=== PATIENT | male | born 1945 | race Caucasian/White ===

== ENCOUNTER 2020-08-29 08:38 | Day surgery (SDC) | payer OTHER ==
[~2020-08-29] VITALS: Ht 177.8 cm; Wt 58.5 kg
[~2020-08-29 08:38] MED LIST: DESO.05TL TOP; MELA3 PO; OMEP20ER PO; TRAZ100 PO; Vitamin D2000 UNIT PO
--- NOTE | 2020-08-29 09:10 | NUR ---
PT ADMITTED TO [facility]. AGREES WITH PLANNED SURGERY. LUNG SOUNDS CLEAR.
--- NOTE | 2020-08-29 12:04 | NUR ---
dr santos in [facility] states "xray looks good".
--- NOTE | 2020-08-30 09:43 | NUR ---
08/30/20 0943 Yulia Mora VERIFICATIONS, AUDITS.
== END 2020-08-29 12:50 | disposition home or self-care (01) ==
LOC: ORSCMMR 08:38
PROVIDERS: Surgery
PROC: 05HM33Z Insertion of Infusion Device into Right Internal Jugular Vein, Percutaneous Approach (ICD-10-PCS; principal; 2020-08-29 10:15)
PROC: B5131ZA Fluoroscopy of Right Jugular Veins using Low Osmolar Contrast, Guidance (ICD-10-PCS; principal; 2020-08-29 10:15)
DX: C15.9 Malignant neoplasm of esophagus, unspecified (principal); I10 Essential (primary) hypertension; J44.9 Chronic obstructive pulmonary disease, unspecified; Z87.891 Personal history of nicotine dependence; Z79.899 Other long term (current) drug therapy
CPT/HCPCS: 77001; C1788; J0690; J1642; J2250; J3010; J7120

== ENCOUNTER 2021-06-20 08:43 | Day surgery (SDC) | payer OTHER ==
[~2021-06-20] VITALS: Ht 177.8 cm; Wt 54.8 kg
[2021-07-18] MEDS ORDERED: FISH OIL-VIT D1 EACH PO (09:17)
[2021-07-18] MEDS ORDERED: CAPE500 PO (09:17)
== END 2021-06-20 11:00 | disposition home or self-care (01) ==
LOC: ORSCSDS 08:43
PROVIDERS: Internal Medicine Gastroenterology
PROC: 0DBL8ZX Excision of Transverse Colon, Via Natural or Artificial Opening Endoscopic, Diagnostic (ICD-10-PCS; principal; 2021-06-20 10:00)
PROC: 0DBK8ZX Excision of Ascending Colon, Via Natural or Artificial Opening Endoscopic, Diagnostic (ICD-10-PCS; principal; 2021-06-20 10:00)
DX: R10.32 Left lower quadrant pain (principal); C18.2 Malignant neoplasm of ascending colon; D12.3 Benign neoplasm of transverse colon; K64.8 Other hemorrhoids; Z87.891 Personal history of nicotine dependence; Z79.899 Other long term (current) drug therapy
CPT/HCPCS: 88305; J2704; J7120

== ENCOUNTER 2021-07-21 05:49 | Inpatient (IN) | payer OTHER ==
[~2021-07-21] VITALS: Ht 177.8 cm; Wt 54.4 kg
[~2021-07-21 05:49] MED LIST changes: +CAPE500 PO; +FISH OIL-VIT D1 EACH PO
--- NOTE | 2021-07-21 09:46 | NUR ---
07/21/[address] PLACED EPIDURAL PRE OP
--- NOTE | 2021-07-21 16:59 | NUR ---
SUMMARY VSS, REPORTS R ARM PAIN IS CURRENTL AT 3/10, STATES PAIN IS "TOLERABLE" DENIES ANY INCISIONAL PAIN, USING EPIDURAL FOR PAIN CONTROL, TOLERATING CLEAR LIQUIDS WELL, DENIES ANY NAUSEA, EPIDURAL CATH INTACT, OOB TO CHAIR FOR DINNER.
[2021-07-22 04:39] LABS: BASOPHILS PERCENT AUTO 0 % (0-2); EOSINOPHILS PERCENT AUTO 0 % (0-6); Hematocrit 26.6 % (37.0-53.0); Hemoglobin 9.2 g/dL (13.5-17.5); IMMATURE GRAN ABSOLUTE AUTO 0.04 K/mm3 (0.00-0.10); IMMATURE GRAN PERCENT AUTO 0 % (0-1); LYMPHOCYTES ABSOLUTE AUTO 0.38 K/mm3 (0.84-5.20); LYMPHOCYTES PERCENT AUTO 4 % (21-46); MONOCYTES ABSOLUTE AUTO 0.67 K/mm3 (0.16-1.47); MONOCYTES PERCENT AUTO 7 % (4-13); Mean Corpuscular HGB 32.2 pg (26.0-34.0); Mean Corpuscular HGB Conc 34.6 g/dL (31.5-36.5); Mean Corpuscular Volume 93 fL (80-100); Mean Platelet Volume 10.9 fL (9.1-12.4); NEUTROPHILS ABSOLUTE AUTO 8.88 K/mm3 (1.96-9.15); NEUTROPHILS PERCENT AUTO 89 % (41-73); Platelet Count 138 K/mm3 (150-400); RDW Coefficient Variation 12.5 % (11.7-14.2); Red Blood Cell Count 2.86 M/mm3 (4.30-5.90); White Blood Cell Count 9.97 K/mm3 (4.00-11.30)
[2021-07-22 04:58] LABS: Anion Gap 5 mmol/L (6-16); Blood Urea Nitrogen 9 mg/dL (8-24); Bun/Creatinine Ratio 11.7 (12.0-20.0); CO2, Blood 26 mmol/L (21-32); Calcium, Blood 7.9 mg/dL (8.5-10.1); Chloride, Blood 106 mmol/L (98-108); Creatinine, Blood 0.77 mg/dL (0.60-1.20); Glomerular Filtration Rate >60 (60-); Glucose, Blood 162 mg/dL (70-99); Potassium, Blood 4.1 mmol/L (3.5-5.5); Sodium, Blood 137 mmol/L (136-145)
--- NOTE | 2021-07-22 06:31 | NUR ---
PT IS A/OX3. HE IS ABLE TO MAKE HIS NEEDS KNOWN. PLEASANT AND COOPERATIVE WITH STAFF AND HIS CARE. NO EVENTS DURING THE NIGHT. HE IS S/P LAP RT HEMICOLECTOMY. REPORTS HE HAS BEEN "DEAING WITH CANCER FOR 2 YEARS NOW. I'VE LOST 57 LBS IN A YEAR." RT CHEST PORT, NOT ACCESSED. BT'S POS, HYPO. ABD DISTENDED, NON-TENDER. DENIED ANY N/V. PASSING GAS. LITA BID. TOLERATING CL DIET WELL. MEJÍA CATHETER PATENT, DRAINING CLEAR MED JASIEL URINE. MIDLINE INCISION W/MONY DRSG. ALSO HAS 3 ABD LAP SITES, ALL COVERED W/GAUZE AND TEGADERM. ALL DRSGS CDI. HAS EPIDURAL (BUPIVACAINE W/FENTANYL), BASAL RATE 6ML/HR W/4ML EVERY 10 MIN W/LOCKOUT AT 16ML/HR. INSERTION SITE CDI W/NO S/SX OF INFECTION NOTED. PT ABLE TO USE EPIDURAL CORRECTLY AND REPORTS EPIDURAL IS MANAGING PAIN WELL. NO NEED FOR PRN MEDS. CBS, RA, SATS 94-97%.
--- NOTE | 2021-07-22 17:44 | NUR ---
PATIENT HAD A GOOD DAY TODAY. WALKED IN PRATT WITH NURSE WITH USE OF GAIT BELT. NO DIZZINESS NOTED. COMPLAINS OF ABD PAIN AT TIMES BUT STATES PAIN MEDICATION IS HELPING WITH HIS PAIN. DRESSINGS TO ABDOMEN CDI, NO DRAINAGE NOTED. ALERT AND ORIENTED. PLEASANT MOOD. NO SIGNS OR SYMPTOMS ACUTE DISTRESS NOTED, CALL LIGHT AND WATER IN EASY REACH. ABLE TO MAKE NEEDS AND WANTS KNOWN.
--- NOTE | 2021-07-23 05:45 | NUR ---
PT IS A/OX3. ABLE TO MAKE HIS NEEDS NKOWN. POD #2 FOR LAP RT HEMICHOLECTOMY. MIDLINE INCISION W/MONY. 3 LAP SITES COVERED W/GAUZE DRSG, CDI. ABD DISTENDED. REPORTS GAS X1. DENIED ANY N/V. BT POS. TOLERATING FL DIET WELL. MEJÍA PATENT, CLEAR/YELLOW URINE. RT CHEST PORT, NOT ACCESSED. PIV TO RFA, PATENT. SL. EPIDURAL MANAGING PAIN WELL.
--- NOTE | 2021-07-23 17:32 | NUR ---
PATIENT HAD A GOOD DAY TODAY. WALKED THE PRATT WITH WALKER AND GAIT BELT WITH STANDBY ASSIST OF STAFF. TOLERATED WELL. WENT FURTHER THAN YESTERDAY. NO COMPALINTS OF PAIN. CONTINUES EPIDURAL INFUSION FOR PAIN. NO DRAINAGE NOTED TO DRESSINGS TO ABDOMEN. NO COMPLAINTS OF NAUSEA OR VOMITING. BOWEL SOUNDS ACTIVE. CALL LIGHT AND WATER IN EASY REACH. ABLE TO MAKE NEEDS AND WANTS KNOWN. WILL CONTINUE TO MONITOR.
--- NOTE | 2021-07-24 06:17 | NUR ---
PT IS A/OX3. ABLE TO MAKE HIS NEEDS KNOWN. PLEASANT AND COOPERATIVE WITH STAFF AND HIS CARE. NO EVENTS DURING THE NIGHT. SLEPT WELL. CBS, RA. RT CHEST PORT NOT ACCESSED. PIV TO RLA, SL. TOLERATING FL DIET WELL. MEJÍA PATENT, DRAINING CLEAR/YELLOW URINE. BT'S POS, HYPO. PASSED GAS X1. DENIED ANY N/V. ABD MIDLINE INCISON W/MONY, WORKING WELL. ABD 3 LAP SITES: BORING MACHINE OPERATOR PRODUCTION, CDI, KALLI. PER PT, SURGEON REMOVED GAUZE DRSG'S TO LAP SITES YEST AND WANTS BORING MACHINE OPERATOR PRODUCTION. EPIDURAL MANAGING PAIN WELL. PER PT, TODAY'S PLAN: MEJÍA/EPIDURAL D/C TODAY AND UPGRADE DIET.
--- NOTE | 2021-07-24 17:30 | NUR ---
SHIFT SUMMARY POST OP JACQUELYN CHOLECTOMY. LAP SITES OPEN TO AIR C/D/I. MIDLINE MONY. TOLERATING FULL LIQUID DIET, NO N/V REPORTED. PASSING FLATUS AND SMALL BOWEL MOVEMENT TODAY. ACTIVE BOWEL TONES IN ALL 4 QUADRANTS. EPIDERAL AND MEJÍA DISCONTINUED TODAY. PAIN BEING TREATED PER EMAR. WILL REPORT TO ONCOMING RN.
--- NOTE | 2021-07-25 06:19 | NUR ---
PT IS A/OX3. ABLE TO MAKE HIS NEEDS KNOWN. PLEASANT AND COOPERATIVE WITH STAFF AND HIS CARE. NO EVENTS OVER NIGHT. EPIDURAL WAS D/C'D YEST. PAIN MANAGED WITH PRN PERCOCET AND TORADOL. MEJÍA CATHETER WAS D/C'D YEST. PT IS VOIDING W/OUT DIFFICULTY. URINE COLLECTED IN HAT, YELLOW AND CLEAR. TOLERATING FL DIET WELL. DID HAVE C/O NAUSEA X1, BUT WAS RELATED TO INCREASED PAIN. GIVEN ZOFRAN X1, GOOD RESULTS. BT'S POS. CBS, RA, SATS 95-97%. RT CHEST PORT IS NOT ACCESSED. AMB W/FWW AND SBA OF 1 STAFF. SLOW BUT STEADY GAIT. PIV TO RFA, SL. ABD: MIDINE W/MONY. MONY WORKING WELL. 3 LAP SITES KALLI BHATIA.
[2021-07-25] MEDS ORDERED: Percocet 5-3251 EACH PO (15:31)
== END 2021-07-25 16:51 | disposition home or self-care (01) | DRG 330 ==
LOC: SURS 05:49 → PRE IP 07:30 → SURS 11:04
PROVIDERS: ADMIT Surgery
PROC: 0DTF4ZZ Resection of Right Large Intestine, Percutaneous Endoscopic Approach (ICD-10-PCS; principal; 2021-07-21 07:30)
DX: C18.2 Malignant neoplasm of ascending colon (principal); R71.0 Precipitous drop in hematocrit; F17.210 Nicotine dependence, cigarettes, uncomplicated; Z85.01 Personal history of malignant neoplasm of esophagus; Z92.21 Personal history of antineoplastic chemotherapy; Z79.899 Other long term (current) drug therapy; Z88.8 Allergy status to other drugs, medicaments and biological substances
CPT/HCPCS: 36415; 80048; 85025; 88309; A9270; J0295; J1100; J1650; J1885; J2001; J2405; J2704; J3010; J7050; J7120

== ENCOUNTER 2021-12-03 11:53 | Day surgery (SDC) | payer OTHER ==
[~2021-12-03] VITALS: Ht 177.8 cm; Wt 53.0 kg
[~2021-12-03 11:53] MED LIST changes: +Percocet 5-3251 EACH PO
== END 2021-12-03 14:19 | disposition home or self-care (01) ==
LOC: ORSCSDS 11:53
PROVIDERS: Internal Medicine Gastroenterology
PROC: 0DB48ZX Excision of Esophagogastric Junction, Via Natural or Artificial Opening Endoscopic, Diagnostic (ICD-10-PCS; principal; 2021-12-03 14:15)
PROC: 0DB98ZX Excision of Duodenum, Via Natural or Artificial Opening Endoscopic, Diagnostic (ICD-10-PCS; principal; 2021-12-03 14:15)
DX: Z13.810 Encounter for screening for upper gastrointestinal disorder (principal); Z85.01 Personal history of malignant neoplasm of esophagus; K31.7 Polyp of stomach and duodenum; K21.9 Gastro-esophageal reflux disease without esophagitis; J44.9 Chronic obstructive pulmonary disease, unspecified; E78.5 Hyperlipidemia, unspecified; I10 Essential (primary) hypertension; Z79.899 Other long term (current) drug therapy
CPT/HCPCS: 88305; J2704; J7120

== ENCOUNTER 2023-09-01 09:52 | Day surgery (SDC) | payer OTHER ==
[~2023-09-01] VITALS: Ht 177.8 cm; Wt 50.3 kg
[2023-09-01] MEDS ORDERED: GABA100 (10:13)
--- NOTE | 2023-09-01 11:16 | NUR ---
09/01/23 1116 Laurie Goldberg PT SLOW TO WAKE. WILL CONTINUE TO MONITOR. VSS STABLE.
[2023-09-01 11:50] VITALS: BP 104/74
== END 2023-09-01 11:50 | disposition home or self-care (01) ==
LOC: ORSCSDS 09:52
PROVIDERS: Internal Medicine Gastroenterology
PROC: 0D747ZZ Dilation of Esophagogastric Junction, Via Natural or Artificial Opening (ICD-10-PCS; principal; 2023-09-01 11:00)
PROC: 0DB48ZX Excision of Esophagogastric Junction, Via Natural or Artificial Opening Endoscopic, Diagnostic (ICD-10-PCS; principal; 2023-09-01 11:00)
DX: R13.10 Dysphagia, unspecified (principal); Z85.01 Personal history of malignant neoplasm of esophagus; K20.90 Esophagitis, unspecified without bleeding; R63.4 Abnormal weight loss; R10.32 Left lower quadrant pain; Z85.038 Personal history of other malignant neoplasm of large intestine; F17.210 Nicotine dependence, cigarettes, uncomplicated; Z79.899 Other long term (current) drug therapy
CPT/HCPCS: 88305; J2001; J2704; J7120

== ENCOUNTER 2023-11-30 09:18 | Emergency (ER) | payer OTHER ==
[~2023-11-30] VITALS: Ht 177.8 cm; Wt 43.5 kg
[~2023-11-30 09:18] MED LIST changes: -GABA300 PO
[2023-11-30] MEDS ORDERED: GABA300 PO (09:38)
[2023-11-30 11:03] LABS: Influenza A Negative (NEGATIVE); Influenza B Negative (NEGATIVE)
[2023-11-30 11:12] LABS: SARS-Cov-2 (COVID-19) PCR, MMC NEGATIVE (NEGATIVE)
[2023-11-30 13:00] VITALS: BP 118/72
== END 2023-11-30 13:13 | disposition home or self-care (01) ==
LOC: ER 09:18
PROVIDERS: Physician Assistant
DX: R11.10 Vomiting, unspecified (principal); R13.10 Dysphagia, unspecified; Z79.890 Hormone replacement therapy; Z79.899 Other long term (current) drug therapy; Z87.891 Personal history of nicotine dependence; Z85.01 Personal history of malignant neoplasm of esophagus; Z59.89 Other problems related to housing and economic circumstances
CPT/HCPCS: 71260; 87804; 87807; 94644; 94664; J2405; Q9967; U0002

== ENCOUNTER → 2023-11-30 | Outpatient (CLI) | payer OTHER ==
[~2023-11-30] MED LIST changes: +GABA100; +GABA300 PO
[2023-11-30 07:52] LABS: BASOPHILS ABSOLUTE AUTO 0.03 K/mm3 (0.00-0.23); BASOPHILS PERCENT AUTO 1 % (0-2); EOSINOPHILS ABSOLUTE AUTO 0.08 K/mm3 (0.00-0.68); EOSINOPHILS PERCENT AUTO 1 % (0-6); Hematocrit 45.8 % (37.0-53.0); Hemoglobin 15.3 g/dL (13.5-17.5); IMMATURE GRAN ABSOLUTE AUTO 0.02 K/mm3 (0.00-0.10); IMMATURE GRAN PERCENT AUTO 0 % (0-1); LYMPHOCYTES ABSOLUTE AUTO 0.84 K/mm3 (0.84-5.20); LYMPHOCYTES PERCENT AUTO 15 % (21-46); MONOCYTES ABSOLUTE AUTO 0.36 K/mm3 (0.16-1.47); MONOCYTES PERCENT AUTO 6 % (4-13); Mean Corpuscular HGB 31.9 pg (26.0-34.0); Mean Corpuscular HGB Conc 33.4 g/dL (31.5-36.5); Mean Corpuscular Volume 96 fL (80-100); Mean Platelet Volume 10.2 fL (9.1-12.4); NEUTROPHILS ABSOLUTE AUTO 4.43 K/mm3 (1.96-9.15); NEUTROPHILS PERCENT AUTO 77 % (41-73); Platelet Count 239 K/mm3 (150-400); RDW Coefficient Variation 12.4 % (11.7-14.2); RDW Standard Deviation 43.6 fL (35.1-46.3); Red Blood Cell Count 4.79 M/mm3 (4.30-5.90); White Blood Cell Count 5.76 K/mm3 (4.00-11.30)
[2023-11-30 08:19] LABS: Albumin/Globulin Ratio 0.7 (0.8-1.8); Bilirubin, Total 0.4 mg/dL (0.1-1.0); Bun/Creatinine Ratio 15.3 (12.0-20.0); Calcium, Blood 9.8 mg/dL (8.5-10.1); Creatinine, Blood 1.11 mg/dL (0.60-1.20); Globulin, Blood 4.5 g/dL (2.2-4.0); Potassium, Blood 4.3 mmol/L (3.5-5.5); Total Protein, Blood 7.5 g/dL (6.4-8.2)
== END ==
LOC: LAB 07:48 → LAB SHORT 07:48
PROVIDERS: Physician Assistant
DX: R06.00 Dyspnea, unspecified (principal); R53.83 Other fatigue
CPT/HCPCS: 80053; 83880; 84484; 85025

== ENCOUNTER 2023-12-08 10:42 | Inpatient (IN) | payer OTHER ==
[~2023-12-08] VITALS: Ht 177.8 cm; Wt 40.8 kg
[~2023-12-08 10:42] MED LIST changes: +GABA300 PO
[2023-12-08 11:28] LABS: BASOPHILS ABSOLUTE AUTO 0.04 K/mm3 (0.00-0.23); BASOPHILS PERCENT AUTO 1 % (0-2); EOSINOPHILS ABSOLUTE AUTO 0.07 K/mm3 (0.00-0.68); EOSINOPHILS PERCENT AUTO 1 % (0-6); Hematocrit 48.1 % (37.0-53.0); Hemoglobin 15.6 g/dL (13.5-17.5); IMMATURE GRAN ABSOLUTE AUTO 0.02 K/mm3 (0.00-0.10); IMMATURE GRAN PERCENT AUTO 0 % (0-1); LYMPHOCYTES ABSOLUTE AUTO 1.09 K/mm3 (0.84-5.20); LYMPHOCYTES PERCENT AUTO 14 % (21-46); MONOCYTES ABSOLUTE AUTO 0.52 K/mm3 (0.16-1.47); MONOCYTES PERCENT AUTO 7 % (4-13); Mean Corpuscular HGB Conc 32.4 g/dL (31.5-36.5); Mean Corpuscular Volume 96 fL (80-100); Mean Platelet Volume 10.5 fL (9.1-12.4); NEUTROPHILS PERCENT AUTO 77 % (41-73); Platelet Count 252 K/mm3 (150-400); RDW Coefficient Variation 12.4 % (11.7-14.2); RDW Standard Deviation 43.8 fL (35.1-46.3); Red Blood Cell Count 5.03 M/mm3 (4.30-5.90); White Blood Cell Count 7.64 K/mm3 (4.00-11.30)
[2023-12-08 11:48] LABS: Albumin/Globulin Ratio 0.6 (0.8-1.8); Bilirubin, Total 0.4 mg/dL (0.1-1.0); Bun/Creatinine Ratio 24.8 (12.0-20.0); Calcium, Blood 9.5 mg/dL (8.5-10.1); Creatinine, Blood 0.89 mg/dL (0.60-1.20); Globulin, Blood 4.7 g/dL (2.2-4.0); Potassium, Blood 4.7 mmol/L (3.5-5.5); Total Protein, Blood 7.7 g/dL (6.4-8.2)
[2023-12-08] MEDS ORDERED: FLU VACC QS2023-24(6MOS UP)/PF 60 MCG/0.5 ML SYRINGE IM SCH (13:35)
[2023-12-08] MEDS ORDERED: Lactated Ringer's 1,000 ML IV SCH (14:00)
[2023-12-08 14:35] VITALS: BP 151/97
--- NOTE | 2023-12-08 14:35 | NUR ---
PATIENT ARRIVED FROM ER TODAY. HE WAS ABLE TO STAND AND PIVIOT FROM THE WHEELCHAIR TO THE BED. HE IS A&OX4 BUT SLIGHTLY SHORT OF BREATH BUT REFUSES THE NEED FOR OXYGEN. HE IS LAYING IN BED WITH CALL LIGHT IN REACH.
--- NOTE | 2023-12-08 15:18 | NUR ---
SHIFT SUMMARY: PATIENT IS A&OX4. HE IS ON RA WITH >90% OXYGEN SATS. HE IS A SBA WHEN AMBULATING SHORT DISTANCES. HE NPO AT THIS TIME AND CURRENTLY HAS IV FLUIDS RUNNING THROUGH HIS IV IN HIS RIGHT FOREARM THAT IS INTACT. PATIENT IS EXTREMELY MALNUTRITION AND HE REPORTS "I CAN'T EAT OR EVEN DRINK WATER WITHOUT THROWING IT UP!". PATIENT REPORTS HE HAS CHRONIC CONSTIPATION WHICH REQUIRES SUPPOSITORIES/STOOL SOFTENERS AND ONLY VOIDS ONCE A DAY DUE TO NOT BEING ABLE TO EAT OR DRINK ANYTHING AT HOME. PATIENT IS CURRENTLY LAYING IN BED WITH CALL LIGHT IN REACH AND FAMILY AT BEDSIDE.
[2023-12-08 16:13] LABS: Magnesium, Blood 2.3 mg/dL (1.6-2.4); Phosphorus, Blood 3.8 mg/dL (2.5-4.9)
[2023-12-08] MEDS ORDERED: Pantoprazole Sodium 40 MG Injection IV SCH (19:00)
[2023-12-08 19:11] VITALS: BP 137/84
[2023-12-08] MEDS ORDERED: LORazepam 2 MG/ML 1ML Injection IV ONE (22:20)
[2023-12-09] VITALS (8 sets, daily range): BP systolic 138–191; BP diastolic 81–113
--- NOTE | 2023-12-09 07:04 | NUR ---
SHIFT SUMMARY PT WAS ADMITTED TO THE HOSPITAL FOR DYSPHAGIA AND A PEG TUBE PLACEMENT. PT HAS A HISTORY OF ESOPHAGEAL CANCER, HAS HAD AN ESOPHAGECTOMY, AND HAS RECENTLY HAD ASPIRATION PNA (BEGINNING OF NOVEMBER) FOR WHICH HE COMPLETED A TWO WEEK COURSE OF ABX. PT USUALLY TAKES 100MG OF TRAZADONE AT NIGHT TO ASSIST WITH HIM SLEEPING, BUT HE IS CURRENTLY NPO. ASKED PROVIDER FOR AN EQUIVALENT FOR THAT MED AND WAS GIVEN ATIVAN. PT ABLE TO GET SOME REST THIS SHIFT. THIS AM, PT GOT UP TO THE BATHROOM AND AFTER GETTING BACK TO BED, HIS RESPIRATIONS INCREASED AND HIS LUNGS SOUND GUNKY AND WHEEZY. DAYSHIFT NURSE SUE AWARE AND IN THE ROOM WITH THIS RN FOR BEDSIDE REPORT. NO OTHER ACUTE EVENTS OCCURRED OVERNIGHT. BED IS IN LOWEST POSITION, CALL LIGHT IS WITHIN REACH.
[2023-12-09] MEDS ORDERED: HydrALAZINE HCl 20 MG / ML 1ML Vial IV PRN (07:40)
[2023-12-09] MEDS ORDERED: FentaNYL Citrate 50 MCG/ML 2 ML Injection IV PRN (08:55)
[2023-12-09] MEDS ORDERED: Thiamine HCl 100 MG in Aa 4.25%/Calcium/Lytes/D5w 1,000 ML IV SCH (15:15)
[2023-12-09] MEDS ORDERED: Multivitamins 10 ML,ZINC SULF/CUSO4 P-HYD/MN/CR/SE 1 ML,Thiamine HCl 100 MG in Aa 4.25%... IV SCH (15:15)
[2023-12-09 16:54] LABS: Bun/Creatinine Ratio 27.7 (12.0-20.0); Calcium, Blood 9.4 mg/dL (8.5-10.1); Creatinine, Blood 0.9 mg/dL (0.60-1.20); Magnesium, Blood 2.1 mg/dL (1.6-2.4); Phosphorus, Blood 3.8 mg/dL (2.5-4.9); Potassium, Blood 4.4 mmol/L (3.5-5.5)
--- NOTE | 2023-12-09 18:04 | NUR ---
SHIFT SUMMARY PT AXO, PLEASANT AND COOPERATIVE WITH CARE. VSS. PICC LINE BEING PLACED AT THIS TIME, CLINAMIX ORDERED. SURGICAL CONSULT, SEE NOTE. PT MEDICATED FOR PAIN PER EMAR. RESPIRATORY THERAPIST RAJIV Lucero IN TO ASSESS PATIENT. THIS NURSE SET UP SUCTION, GAVE PT FLUTTER VALVE AND IS AND ENCOURAGED PT TO USE. BED IN LOW POSITION, CALL LIGHT WITHIN REACH. PT HAD FAMILY IN ROOM THROUGHOUT THE SHIFT. FAMILY OPEN TO DISCUSSION ABOUT PALLIATIVE CARE BUT NOT READY FOR COMFORT CARE DISCUSSION.
[2023-12-09] MEDS ORDERED: LORazepam 2 MG/ML 1ML Injection IV SCH (21:00)
[2023-12-10] VITALS (7 sets, daily range): BP systolic 128–163; BP diastolic 78–101
--- NOTE | 2023-12-10 00:47 | NUR ---
NURSE DOCUMENTATION THIS RN WAS CALLED TO THE PT'S ROOM BY DAVID VALDES AFTER THE CALL LIGHT WAS ACTIVATED BY THE PT'S SPOUSE, ASHLEY, AT APPROX [phone]. THIS RN FOUND THE PT ON THE FLOOR, APPARENTLY ATTEMPTING TO WALK TO THE BATHROOM ON HIS OWN POWER, WITHOUT ASSISTANCE OF STAFF OR THE WALKER HE HAS BEEN USING WHEN GETTING UP TO USE THE BATHROOM. THIS RN CALLED DARCI PHAM INTO THE ROOM FROM THE HALLWAY AND WE ASSESSED THE PT WITH DAVID'Rema VALDES AND GERARDO IN THE ROOM WELL. VITAL SIGNS WERE NORMAL ASIDE FROM THE PT'S BLOOD PRESSURE BEING ELEVATED. THE PT DID SUFFER A SKIN TEAR ON HIS RIGHT ELBOW AND THIS WAS COVERED WITH A MEPILEX ONCE THE PT WAS PLACED BACK INTO HIS BED BY STAFF. PT'S VITAL SIGNS HAVE BEEN STABLE SINCE THE FALL WITH THE PT'S BP COMING DOWN TIME EXTENDS PAST THE INCIDENT. PT AND PT'S SPOUSE EDUCATED ABOUT THE PT NOT GETTING UP FOR THE REMAINDER OF THE SHIFT D/T GENERALIZED WEAKNESS. CHARLY HEATON NOTIFIED AT 2310 ABOUT PT'S CONDITION POST FALL. PT STATED HIS ELBOW AND COCCYX WERE PAINFUL, BUT NO OTHER AREAS WERE SORE. PT ABLE TO MOVE ALL EXTREMITIES WITHOUT DIFFICULTY. NO IMAGING ORDERED AT THIS TIME. IF PT DOES COMPLAIN OF ANY PAIN, WILL CONSULT PROVIDER TO ORDER IMAGING ON AN NEEDED BASIS.
[2023-12-10 06:29] LABS: Anion Gap 2 mmol/L (6-16); Blood Urea Nitrogen 23 mg/dL (8-24); Bun/Creatinine Ratio 33.7 (12.0-20.0); CO2, Blood 29 mmol/L (21-32); Calcium, Blood 8.8 mg/dL (8.5-10.1); Chloride, Blood 104 mmol/L (98-108); Creatinine, Blood 0.68 mg/dL (0.60-1.20); Glomerular Filtration Rate 96 (60-); Glucose, Blood 117 mg/dL (70-99); Magnesium, Blood 1.8 mg/dL (1.6-2.4); Phosphorus, Blood 3.5 mg/dL (2.5-4.9); Potassium, Blood 4.1 mmol/L (3.5-5.5); Sodium, Blood 135 mmol/L (136-145); Triglycerides 93 mg/dL (30-160)
--- NOTE | 2023-12-10 06:30 | NUR ---
SHIFT SUMMARY PT IS HERE FOR DYSPHAGIA, FOR WHICH HE WAS POTENTIALLY GOING TO HAVE A TUBE PLACED, BUT INSTEAD HAS HAD A PICC LINE PLACED WITH CLINIMIX CURRENTLY RUNNING FOR NUTRITION SINCE THE PT HAS BEEN NPO SINCE COMING TO THE HOSPITAL. PT HAS NOT BEEN ABLE TO MANAGE HIS SECRETIONS, USUALLY SPITS INTO A CUP OR KLEENEX, BUT DOES HAVE A YANKAUR AT BEDSIDE. PT DID HAVE A FALL LAST NIGHT, SEE OTHER NOTE MADE BY THIS RN. ASIDE FROM SOME SLIGHTLY ELEVATED BP, THE PT'S VITAL SIGNS HAVE BEEN STABLE. NO OTHER ACUTE EVENTS OCCURRED OVERNIGHT ASIDE FROM WHAT IS NOTED ABOVE. BED IS IN LOWEST POSITION, CALL LIGHT IS WITHIN REACH. IS AT BEDSIDE.
[2023-12-10] MEDS ORDERED: Scopolamine Hydrobromide Patch TOP PRN ×2 (15:50→17:25)
[2023-12-10] MEDS ORDERED: HYDROmorphone HCl/Pf 1MG SYR IV PRN (15:50)
--- NOTE | 2023-12-10 16:34 | NUR ---
SHIFT SUMMARY: PATIENT A/O TO SELF, PLACED AND FAMILY MEMBER AT BEDSIDE. PATIENT REPORTS PAIN TO ABDOMEN 8/10, MEDICATED c PRN PAIN MEDS PER EMAR c MOD EFFECT. PATIENT HAS WEAK PRODUCTIVE COUGH, LUNGS COARSE/CRACKLES T/O TO AUSCULTATION. ORAL SUCTION SET-UP AND WITHIN PATIENT REACH. PATIENT STILL ON NPO, INFUSING IV CLINIMIX TO [place] PICC LINE. PATIENT IS CONT/INCON OF BLADDER, USES URINAL c ASSISTANCE. PATIENT HAS PALLIATIVE CONSULT ORDER, KEISHA/MICAH-PALLIATIVE CARE RN'S SPOKE TO SPOUSE AND DAUGHTER REGARDING PLAN OF CARE. PATIENT RESTING IN BED OFF AND ON T/O THE DAY. VITAL SIGNS REVIEWED. BED ALARM ON FOR SAFETY. CALL LIGHT IN REACH.
--- NOTE | 2023-12-10 17:02 | NUR ---
MET WITH PATIENT AND . DISCUSSED SYMPTOMS, SUSANA IS HAVING A LOT OF ORAL SECREATIONS AND IS ASPERATING ON IT. HE IS ALSO HAVING ABDOMINAL PAIN. SPOKE WITH DR. MONTOYA ABOUT HIS SYMPTOMS AND WILL ADD SCOPE PATCH AND PAIN MEDICATIONS. AFTER I LEFT REQUESTED THAT WE HAVE A PRIVATE CONVERSATION. MICAH AND I WENT TO SPEAK WITH AND DAUGHTER. WE DISCUSSED WHAT HOSPICE CARE WOULD LOOK LIKE AND WHAT OPTIONS THEY HAD IF THEY CHOSE TO GO THAT ROUTE. I SPOKE WITH DR. MONTOYA ABOUT THIS CONVERSATION AND HE WILL FOLLOW UP WITH THEM TOMORROW. I DISCUSSED THIS CASE WITH THE BEDSIDE RN AND CASE MANAGMENT. I SPOKE TO SPIRITUAL CARE AND HE VISITED AND DAUGHTER.
--- NOTE | 2023-12-10 17:07 | NUR ---
"Spiritual Care | Palliative Nurse Request Palliative nurses requested I meet with family away from the Pt. Family was in a room across the gu and welcomed my visit. Pts. Spouse was [place] as her hearing aid batteries were wearing out. Pts. daughter recognized this fender mechanic apprentice from the community. Facilitated a conversation about the meaning of Comfort Care when the reality of disease often makes the decision. Family displayed evidence of really finding a sense of perspective and comfort. Prayed with family and assured them that Spiritual Care could be avilable at any time over the weekend."
[2023-12-10] MEDS ORDERED: Promethazine HCl 25 MG Tab PO PRN (17:20)
[2023-12-10] MEDS ORDERED: Morphine Sulfate 10 MG/ML 1MLSYR IV PRN (17:20)
[2023-12-10] MEDS ORDERED: Morphine Sulfate 20 MG/1ML 1 ML Oral Syringe SL PRN (17:20)
[2023-12-10] MEDS ORDERED: Atropine Sulfate 1% Opth Soln 2ML BTL SL PRN (17:25)
[2023-12-10] MEDS ORDERED: Albuterol 2.5 MG/3 ML VIAL INH PRN (17:40)
--- NOTE | 2023-12-10 18:18 | NUR ---
ADDITIONAL NOTE: PATIENT PLACED ON COMFORT CARE MEASURES AT AROUND 1700'S PER PATIENT/FAMILY'S REQUEST. PATIENT RECEIVED ATROPINE DROPS, SCOPALAMINE PLACED BEHIND R EAR FOR SECRETIONS AND MEDICATED c PRN 1 MG IV MORPHINE FOR PAIN 07/18 TO ABDOMEN c ADEQUATE EFFECT. CALL LIGHT IN REACH. PATIENT SPOUSE AT BEDSIDE.
--- NOTE | 2023-12-11 07:59 | NUR ---
SHIFT SUMMARY NOC. PT ON COMFORT CARE. PT MEDICATED FOR PAIN WITH RELIEF OF SX. PT VOIDING MINIMAL AMOUNTS OF URINE AND IS NPO. PT REPORTED SOB AT TIMES WHICH WAS ALLEVIATED WITH PAIN MEDS. PT O2 WENT TO 88% AND PT DECLINED OXYGEN THERAPY STATING "IT DOESN'T HELP". PT'S DAUGHTER AT BEDSIDE DURING NIGHT. PT RESTED WITH EYES CLOSED AND CALL LIGHT IN REACH.
--- NOTE | 2023-12-11 17:11 | NUR ---
Brief visit pt states he is feeling more comfortable. at bedside sent chaplian to see family for moral and spiritual support.
--- NOTE | 2023-12-11 17:33 | NUR ---
SHIFT SUMMARY PT A&OX4, VSS/RA, NPO/ICE CHIPS, REPOSITIONS SELF, VOIDING/MINIMAL, PAIN MANAGED WITH MORPHINE 2 MG IV Q2H/PICC LINE, SL ROXANOL 10 MG GIVEN ONCE AND PT DID NOT LIKE THE TASTE. AT BEDSIDE. WILL REPORT TO ONCOMING KENDALL RN.
[2023-12-12] MEDS ORDERED: DiphenhydrAMINE HCl 50 MG/ML 1ML Vial IV PRN ×2 (02:00→09:55)
--- NOTE | 2023-12-12 07:39 | NUR ---
SHIFT SUMMARY PT IS ON COMFORT CARE, PAIN MANAGED PER EMAR W IV MEDICATION DUE TO PT REFUSAL OF PO ROXANOL, PT'S STAYED OVER NIGHT & ASSISTS W CARE, REPOSITIONS SELF IN BED, CALLS FOR ASSISTANCE PRN, IV BENEDRYL X1 ORDERED DUE TO INCREASED ITCHING, BENEDRYL HELD TO AVOID OVER SEDATION, PT WAS ABLE TO TOLERATE ITCHING & SLEEP AFTER PAIN MEDICATION, REPORT GIVEN TO TREMAYNE BRUNO, CALL LIGHT IN REACH
[2023-12-12] MEDS ORDERED: FentaNYL 25 MCG Patch TOP SCH (08:55)
--- NOTE | 2023-12-12 15:08 | NUR ---
SHIFT SUMMARY PT A&OX3/MORE CONFUSED TODAY/ BEDSIDE, NPO/ICE CHIPS, REPOSITIONS SELF, VOIDING/MINIMAL, PAIN MANAGED WITH SL ROXANOL 10 MG, WILL REPORT TO ONCOMING NOC RN.
--- NOTE | 2023-12-12 17:54 | NUR ---
Pt more aggitated wanting to get out of bed to void and not able. Review with nursing to bladder scan. pt voice and general apperance is better. daughter at bedside. may need davila he is denying one. Came back at him a little said we have to protenct his comfort. He restores cars and motorcycles will have someone visit him and talk about his hobbies.
--- NOTE | 2023-12-12 18:15 | NUR ---
BLADDER SCAN [address] [facility] PATIENT/DAUGHTER R/T CATH STRAIGHT/MEJÍA - COMFORT CARE. PT DECLINED.
--- NOTE | 2023-12-12 18:49 | NUR ---
URINE OUTPUT IN URINAL 100 MLS PLUS UNMEASURED VOID
--- NOTE | 2023-12-13 07:07 | NUR ---
SHIFT SUMMARY NO ACUTE CHANGES OVER NIGHT, PT REMAINS A&O X3-4, ON RA, COMMUNICATES NEEDS PRN, PAIN MANAGED PER EMAR, URINE OUTPUT HAS IMPROVED, PT ATTEMPTS TO USE HIS URINAL, LINEN CHANGED PRN, REPOSITIONS SELF IN BED, DAUGHTER AT BEDSIDE, ASSISTS W CARE, REPORT GIVEN TO BREANNE BRUNO, CALL LIGHT IN REACH
--- NOTE | 2023-12-13 09:22 | NUR ---
PAIN MANAGEMENT AFTER GIVING 10MG ROXANOL, PT REPORTS TO STILL BE PAINFULL. REQUESTED IV MORPHINE. MADE PLANS TO TRY 20MG ROXANOL NEXT TIME FOR PAIN.
--- NOTE | 2023-12-13 19:05 | NUR ---
SHIFT SUMMARY PT REPORTS HE FEELS CONFIDENT THAT THE 20MG OF ROXICODONE WILL WORK FINE FOR PAIN MANAGEMENT. (FAMILY AGREES) BUT STILL DOES WANT TO USE THE IV MORPHONE WHILE HERE. IS IN GOOD SPIRITS DESPITE DC'ing HOME ON HOSPICE TOMORROW. PLAN FOR TRANSPORT AT 10:00.
[2023-12-13 19:19] VITALS: BP 107/69
--- NOTE | 2023-12-14 06:28 | NUR ---
PT SLEPT FOR MAJORITY OF NIGHT. PAIN MGD W/5MG MORPHINE W/REP RELIEF. PT NPO X FEW ICE CHIPS, HAD 1 VOID THIS SHIFT. LUNGS REMAIN COARSE T/O, RESP 10 THIS AM. PT REPOSITIONING SELF IN BED, ASSISTED PRN. SUPPORTIVE IN ROOM. SUPPORT PRN T/O NIGHT. PLAN TO DC HOME ON HOSPICE THIS AM.
[2023-12-14] MEDS ORDERED: PROM25 PR (08:48)
[2023-12-14] MEDS ORDERED: MORP20L SL (08:49)
[2023-12-14] MEDS ORDERED: FENTANYL1 EA10 TOP (08:49)
[2023-12-14] MEDS ORDERED: ATROPINE SULFATE2 M1 SL (08:50)
--- NOTE | 2023-12-14 10:17 | NUR ---
DISCHARGE HOME ON HOSPICE PRE MEDICATED FOR TRANSPORT. BELONGINGS PACK. EMOTIONAL, GIVEN EXTRA TIME & SUPPORT. PT HAPPY TO BE GOING HOME. HOSPICE NOTIFIED BY , WITNESSED BY THIS RN.
--- NOTE | 2023-12-14 10:29 | NUR ---
LATE ENTRY. MET WITH SUSANA AND HIS . HE HAD A LOT OF SECREATIONS AND REPORTED ABDOMINAL PAIN. I SPOKE WITH DR. MONTOYA AND HE ADDED A SCOPE PATCH AND WILL LOOK AT PAIN CHANGING PAIN MEDICATIONS. HAD THE BEDSIDE RN CALL AFTER I LEFT AND WANTED TO SPEAK TO ME WITH HER AND HER DAUGHTER. I WAS ACCOMPINIED BY MICAH RN TO FACILITATE THIS CONVERSATION. WE DISCUSSED THE POSSIBILITY OF END OF LIFE CARE AND WHAT THAT MAY LOOK LIKE. FAMILY FEELS THIS MAY BE APPROPRIATE AT THIS TIME. DR. MONTOYA DISCUSSED THIS WITH SUSANA AND HE WAS TRANSITIONED TO COMFORT CARE. THEY WILL WORK ON CREATING A DISCHARGE PLAN THIS WEEKEND.
--- NOTE | 2023-12-14 10:40 | NUR ---
MET WITH SUSANA AND HIS . HIS SYMPTOMS WERE MUCH IMPROVED SINCE MY LAST VISIT. HIS SECREATIONS WERE RESOLVED. HE REPORTED THAT HIS PAIN WAS MUCH BETTER. HE APPEARED TO BE IN MUCH BETTER SPIRITS THAN LAST TIME I VISITED HIM. HE WAS GETTING DRESSED IN PREPERATION TO GO HOME. I FILLED OUT A POLST AND HAD THE DR SIGN. 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 WE ENDED OUT VISIT WHEN TRANSPORT ARRIVED.
== END 2023-12-14 10:17 | disposition hospice, home (50) | DRG 391 ==
LOC: ER 10:42 → SURS 13:28
PROVIDERS: Physician Assistant; Student in an Organized Health Care Education/Training Program; ADMIT Internal Medicine
DX: R13.10 Dysphagia, unspecified (principal); E43 Unspecified severe protein-calorie malnutrition; J18.9 Pneumonia, unspecified organism; J69.0 Pneumonitis due to inhalation of food and vomit; J90 Pleural effusion, not elsewhere classified; E87.1 Hypo-osmolality and hyponatremia; Z68.1 Body mass index [BMI] 19.9 or less, adult; J44.0 Chronic obstructive pulmonary disease with (acute) lower respiratory infection; Z51.5 Encounter for palliative care; Z66 Do not resuscitate; K21.9 Gastro-esophageal reflux disease without esophagitis; J43.9 Emphysema, unspecified; E86.0 Dehydration; E88.09 Other disorders of plasma-protein metabolism, not elsewhere classified; Z90.49 Acquired absence of other specified parts of digestive tract; Z85.01 Personal history of malignant neoplasm of esophagus; Z87.891 Personal history of nicotine dependence
CPT/HCPCS: 36415; 71045; 71046; 71260; 80048; 80053; 82947; 83735; 84100; 84478; 85025; 94760; 96374; 96375; 96376; 99284-25; A9270; C9113; G0378; J1170; J1200; J2060; J2270; J3010; J3411; J7120; Q9967